=== PATIENT | male | born 1960 | race American Indian/Alaskan Native ===

== ENCOUNTER 2017-04-25 08:36 | Emergency (ER) | payer SELFPAY ==
[2017-04-25] MEDS ORDERED: BOOSTRIX IM ONE (09:41)
[2017-04-25] MEDS ORDERED: PERCOCET 5/325 PO ONE (09:41)
[2017-04-25] MEDS ORDERED: CLEOCIN PO ONE (09:41)
[2017-04-25] MEDS ORDERED: TRIPLE ANTIBIOTIC TP ONE (09:42)
[2017-04-25 10:24] VITALS: BP 148/92
--- NOTE | 2017-04-25 10:43 | Emergency Department Report ---
Entered by BESSY RUSHING, acting as scribe for BELEN SANCHEZ PA. Upper Extremity - HPI Chief Complaint: Wound/Laceration Stated Complaint: LEFT MIDDLE FINGER LACERATION Time Seen by Provider: 04/25/17 09:20 Upper Extremity: Left Middle Finger (injuryyesterday at work with bleeding, pain.) Occurred When: 1 Day Severity: severe (8/10) Symptoms: Yes Pain with Movement (left 3rd finger), Yes Deformity (left 3rd finger), Yes Laceration or Abrasion (cut to top of 3rd finger), No Limited Range of Movement, No Numbness, No Weakness, No Swelling, No Bruising/Ecchymosis Other History: 57 y/o male with a PMHx of HTN presents to the ED c/o a laceration to left 3rd finger that began at yesterday afternoon at 13:00. Patient states he cut the top of his finger at work yesterday. Rates associated pain a 8/10 in severity, which he describes as throbbing in quality. Aggravated with palpation and movement, and alleviated with immbolization. Denies numbnesss and tingling. Applied a bandage to affected finger with no relief. Patient states he unwrapped his finger with gauze and it began to bleed. Took 2 tablets of Motrin with some relief. Not UTD with tetanus. NKDA. ED Review of Systems ROS: Stated complaint: LEFT MIDDLE FINGER LACERATION Other details as noted in HPI Comment: All other systems reviewed and negative Constitutional: denies: chills, fever Eyes: denies: eye pain, eye discharge, vision change ENT: denies: ear pain, throat pain Respiratory: denies: cough, orthopnea, shortness of breath, SOB with exertion, SOB at rest, stridor, wheezing Cardiovascular: denies: chest pain, palpitations, dyspnea on exertion, orthopnea , edema, syncope, paroxysmal nocturnal dyspnea Endocrine: no symptoms reported Gastrointestinal: denies: abdominal pain, nausea, vomiting, diarrhea Genitourinary: denies: urgency, dysuria Musculoskeletal: arthralgia (left 3rd finger pain). denies: back pain, joint swelling, myalgia Skin: other (laceration to top of left 3rd finger). denies: rash, lesions Neurological: denies: headache, weakness, numbness, paresthesias Psychiatric: denies: anxiety, depression Hematological/Lymphatic: denies: easy bleeding, easy bruising ED Past Medical Hx - Past Medical History Previous Medical History?: Yes Hx Hypertension: Yes - Surgical History Past Surgical History?: Yes Additional Surgical History: left elbow, right foot, hernia, - Family History Family history: no significant - Social History Smoking Status: Current Every Day Smoker Substance Use Type: Alcohol Other Social History: - Medications Home Medications: Home Medications Medication Instructions Recorded Confirmed Last Taken Type Cephalexin [Keflex] 500 mg PO Q8HR #30 cap 04/25/17 Unknown Rx HYDROcodone/APAP 5-325 [[place] 1 each PO Q6HR PRN #12 tablet 04/25/17 Unknown Rx 5/325] Ibuprofen [Motrin] 600 mg PO Q8H PRN #15 tablet 04/25/17 Unknown Rx Upper Extremity Exam - Exam General: Vital signs noted. No distress. General: This is a well nourished, well developed, 57 year old male in no acute distress and nontoxic in appearance Cardiovascular: S1-S2, regular rate, regular rhythm. No murmurs. Head and Torso: No HEENT Abnormality (Normal exam), No Neck Tenderness (Supple, no C-spine tenderness, no tracheal deviation. Nontender to palpation. no adenopathy), No Chest/Lungs Abnormality (Clear to auscultation bilaterally. No wheezes, rhonchi, or rales), No Abdominal Tenderness (Soft, normal bowel sounds) , No Back Tenderness (Normal exam) Shoulder Exam: Yes Normal Range of Motion in Shoulder, No Shoulder Tenderness, No Clavicle Tenderness, No Shoulder Deformity, No AC Joint Tenderness Arm Exam: No Arm/Humerus Tenderness, No Arm Deformity Elbow: Yes Normal Range of Motion in Elbow, No Elbow Tenderness, No Elbow Deformity Forearm: No Forearm Tenderness, No Forearm Deformity, No Pain with Pronation, No Pain with Supination Wrist: Yes Normal ROM in Wrist, No Wrist Tenderness, No Wrist Deformity, No Snuffbox Tenderness, No Pain with Axial Thumb Compression Hand: Yes Digit Tenderness (left 3rd finger At Tuft), Yes Normal ROM in Digit(s ) (normal, but painful ROM to left 3rd finger. 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 Partial Nail avulsion), Yes Normal Distal Pulses (2+ pulses), Yes Normal Capillary Refill, Yes Normal Distal Sensation ED Course Vital Signs 04/25/17 08:48 Temperature 98.7 F Pulse Rate 72 Respiratory 16 Rate Blood Pressure 146/110 O2 Sat by Pulse 97 Oximetry - Reevaluation(s) Reevaluation #1: 04/25/17 10:24 Clindamycin 600 mg IM, Boostrix 0.5 mlx, percocet 5/325 mg po in ED. No adverse reaction - Procedure Description Procedures done: Wound Care: Lt 3rd digit wound soakes and irrigigated extensively. No foteign body seen. Neosporin ointment followed by non-adhesive dry dsg. Neurovascular intact ED Medical Decision Making - Medical Decision Making ED Course: Patient with guillory mail avulsion and partial skin avulsion injury to left 3rd finger. TTP. No bony abnormality or restriction in ROM. Wound care done. See procedure note.Clindamycin 600 mg IM, Boostrix 0.5 mlx, percocet 5/ 325 mg po in ED. No adverse reaction. 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 Diagnosis and treatment plan discussed with patient and he voiced understanding. ASSESS/PLAN 1. partial Nail Avulsion, Left 3rd digit 2 :Arthralgia left hand at 3rd finger 3: laceration with skin avulsion- unable to repair Discharge from ED with to follow up with PCP in 3 days. Given prescription for Keflex, Dunnegan and motrin with wound care instructions. Critical care attestation.: If time is entered above; I have spent that time in minutes in the direct care of this critically ill patient, excluding procedure time. ED Disposition Clinical Impression: Arthralgia of left hand Avulsion of skin of left hand Qualifiers: Encounter type: initial encounter Qualified Code(s): S61.402A - Unspecified open wound of left hand, initial encounter Open wound of left middle finger with damage to nail Qualifiers: Encounter type: initial encounter Qualified Code(s): S61.303A - Unspecified open wound of left middle finger with damage to nail, initial encounter Nail avulsion, finger Qualifiers: Encounter type: initial encounter Qualified Code(s): S61.309A - Unspecified open wound of unspecified finger with damage to nail, initial encounter Disposition: DC-01 TO HOME OR SELFCARE Is pt being admited?: No Does the pt Need Aspirin: No Condition: Stable Instructions: Acute Wound Care (ED), Skin Avulsion (ED), Arthralgia (ED) Additional Instructions: Keep affected area clean and dry Wound care as instructed take antibiotic as prescribed Clean wound daily with water and cover with gauze dressing until healed Follow up with PCP in [address] or operate heavy machinery while taking Dunnegan as this meds causes drowsiness. Prescriptions: Cephalexin [Keflex] 500 mg PO Q8HR #30 cap HYDROcodone/APAP 5-325 [Dunnegan 5/325] 1 each PO Q6HR PRN #12 tablet PRN Reason: Pain Ibuprofen [Motrin] 600 mg PO Q8H PRN #15 tablet PRN Reason: Pain Referrals: [facility] [Outside] - 2-3 Days [facility] [Outside] - 2-3 Days Forms: Accompanied Note, Work/School Release Form(ED) This documentation as recorded by the KRISTAN atkins JASMINE,accurately reflects the service I personally performed and the decisions made by ,BELEN SANCHEZ PA.
== END 2017-04-25 10:56 | disposition home or self-care (01) ==
LOC: ED 08:36
DX: S61.313A Laceration without foreign body of left middle finger with damage to nail, initial encounter (principal); I10 Essential (primary) hypertension; F17.210 Nicotine dependence, cigarettes, uncomplicated; X58.XXXA Exposure to other specified factors, initial encounter; Y93.89 Activity, other specified; Y92.89 Other specified places as the place of occurrence of the external cause; Y99.8 Other external cause status
CPT/HCPCS: 90471; 90715; 99282; A6250

== ENCOUNTER 2017-05-19 12:06 | Emergency (ER) | payer SELFPAY ==
[2017-05-19 12:19] VITALS: BP 156/115
[2017-05-19 12:43] LABS: Hematocrit 48.3 % (35.5-45.6); Hemoglobin 15.9 gm/dl (11.8-15.2); Mean Corpuscular HGB Conc 33 % (32-34); Mean Corpuscular Hemoglobin 28 pg (28-32); Mean Corpuscular Volume 85 fl (84-94); Platelet Count 233 K/mm3 (140-440); Red Blood Count 5.68 M/mm3 (3.65-5.03); Red Cell Distribution Width 14.7 % (13.2-15.2); White Blood Count 6.8 K/mm3 (4.5-11.0)
--- NOTE | 2017-05-19 13:02 | Cat Scan Report ---
CT HEAD WITHOUT CONTRAST INDICATION: Headache. COMPARISON: None similar at this institution. FINDINGS: Noncontrast head CT demonstrates symmetric ventricles and sulci without acute or recent infarct, hemorrhage, mass effect or midline shift. No abnormal extra-axial fluid collections. Posterior fossa structures and basilar cisterns appear within normal limits. Symmetric eye globes. Somewhat hypoplastic frontal sinuses with slight left frontoethmoid mucosal thickening possible. Clear remainder aerated paranasal sinuses and mastoid air cells. Intact calvarium. Normal overlying scalp soft tissues. Few radiopaque dental material incidentally noted. Cervical spondylosis. CONCLUSION: No acute intracranial CT abnormality, as described. Thank you for the opportunity to participate in this patient's care.
[2017-05-19 13:04] LABS: Alanine Aminotransferase 10 units/L (7-56); Albumin 4.1 g/dL (3.9-5); Albumin/Globulin Ratio 1.1 %; Alkaline Phosphatase 78 units/L (35-129); Anion Gap 19 mmol/L; BUN/Creatinine Ratio 11.11; Blood Urea Nitrogen 10 mg/dL (9-20); Calcium 9.2 mg/dL (8.4-10.2); Carbon Dioxide 26 mmol/L (22-30); Chloride 100.2 mmol/L (98-107); Glucose 116 mg/dL (75-100); Potassium 4.2 mmol/L (3.6-5.0); Sodium 141 mmol/L (137-145); Total Protein 7.7 g/dL (6.3-8.2)
[2017-05-19 13:05] LABS: Bilirubin,Direct < 0.2 mg/dL (0-0.2)
[2017-05-19 13:23] LABS: INR 0.89 (0.87-1.13)
[2017-05-19] MEDS ORDERED: MOTRIN PO ONE (14:49)
== END 2017-05-19 23:30 | disposition left against medical advice (07) ==
LOC: ED 12:06
DX: Z53.21 Procedure and treatment not carried out due to patient leaving prior to being seen by health care provider (principal)
CPT/HCPCS: 36415; 70450; 80048; 80074; 85027; 85610; 85730

== ENCOUNTER 2017-10-22 10:31 | Emergency (ER) | payer SELFPAY ==
[2017-10-22 11:34] LABS: Basophils % (Auto) 0.5 % (0.0-1.8); Eosinophils # (Auto) 0.4 K/mm3 (0.0-0.4); Hematocrit 46.1 % (35.5-45.6); Hemoglobin 15.8 gm/dl (11.8-15.2); Lymphocytes # (Auto) 3.2 K/mm3 (1.2-5.4); Lymphocytes % (Auto) 38.1 % (13.4-35.0); Mean Corpuscular HGB Conc 34 % (32-34); Mean Corpuscular Hemoglobin 29 pg (28-32); Mean Corpuscular Volume 84 fl (84-94); Monocytes # (Auto) 0.8 K/mm3 (0.0-0.8); Monocytes % (Auto) 9.9 % (0.0-7.3); Platelet Count 208 K/mm3 (140-440); Red Cell Distribution Width 13.8 % (13.2-15.2)
[2017-10-22 11:47] LABS: BUN/Creatinine Ratio 7; Blood Urea Nitrogen 8 mg/dL (9-20); Calcium 9.1 mg/dL (8.4-10.2); Hemolysis Index 4
--- NOTE | 2017-10-22 12:09 | XRay Report ---
Chest 2 views: History: Fever with SOB. Findings: Normal cardiomediastinal silhouette. Trachea is midline. No consolidation, pneumothorax or pleural effusion. Impression: No acute cardiopulmonary findings.
[2017-10-22] MEDS ORDERED: ZOFRAN IV ONE (12:38)
[2017-10-22] MEDS ORDERED: NACL 0.9% 1000 ML 1,000 ML IV ONE (12:38)
[2017-10-22] MEDS ORDERED: TORADOL IV ONE (12:38)
--- NOTE | 2017-10-22 12:45 | Emergency Department Report ---
Blank Doc - Documentation Documentation: She is a 57-year-old Haitian male who is presenting with cough cold congestion and diarrhea nausea for the past 2-3 weeks. Patient states the cough is nonproductive he's had subjective fevers has been fatigued and not getting out of bed much. Patient states he's had decreased appetite and is eating and drinking less. Patient is slightly tachycardic lungs were clear. Chest x-ray was within normal limits however because of the tachycardia and shortness of breath and the duration will add a d-dimer to his blood work patient be given IV fluids as he had presumed dehydration and tachycardia. Patient will be reassessed by the AP P
--- NOTE | 2017-10-22 13:38 | Emergency Department Report ---
ED Shortness of Breath HPI - General Chief Complaint: Fever Stated Complaint: FEVER Time Seen by Provider: 10/22/17 12:31 Source: patient Mode of arrival: Ambulatory Limitations: No Limitations - History of Present Illness Initial Comments: 57-year-old male presents with complaint of 3 weeks of persistent cough. Patient is a smoker. Pt denies chest pain. Patient screened by Dr. Justin becker MD Complaint: shortness of breath, cough Onset/Timin -: week(s) Improves With: bronchodilators Known History Of: asthma Context: recent URI Associated Symptoms: cough - Related Data Home Oxygen Therapy: No Previous Rx's Medication Instructions Recorded Last Taken Type Cephalexin [Keflex] 500 mg PO Q8HR #30 cap 04/25/17 Unknown Rx HYDROcodone/APAP 5-325 [[place] 1 each PO Q6HR PRN #12 tablet 04/25/17 Unknown Rx 5/325] Ibuprofen [Motrin] 600 mg PO Q8H PRN #15 tablet 04/25/17 Unknown Rx Albuterol Sulfate [Ventolin Hfa] 1 puff IH Q4H PRN #1 hfa.aer.ad 10/22/17 Unknown Rx Azithromycin [Zithromax TAB] 250 mg PO QDAY #4 tablet 10/22/17 Unknown Rx Dextromethorphan Hb/Doxylamine 10 ml PO Q6H PRN #1 liquid 10/22/17 Unknown Rx [Safetussin Pm Liquid] Ibuprofen [Motrin] 800 mg PO Q8HR PRN #30 tablet 10/22/17 Unknown Rx Ondansetron [Zofran Odt] 4 mg PO Q8H PRN #10 tab.rapdis 10/22/17 Unknown Rx Ondansetron [Zofran Odt] 4 mg PO Q8H PRN #10 tab.rapdis 10/22/17 Unknown Rx Allergies Allergy/AdvReac Type Severity Reaction Status Date / Time chocolate flavor Allergy Rash Verified 05/19/17 12:20 orange Allergy Rash Verified 05/19/17 12:20 ED Review of Systems ROS: Stated complaint: FEVER Other details as noted in HPI Constitutional: denies: chills, fever Eyes: denies: eye pain, eye discharge, vision change ENT: denies: ear pain, throat pain Respiratory: cough, wheezing. denies: shortness of breath Cardiovascular: denies: chest pain, palpitations Endocrine: no symptoms reported Gastrointestinal: denies: abdominal pain, nausea, diarrhea Genitourinary: denies: urgency, dysuria Musculoskeletal: denies: back pain, joint swelling, arthralgia Skin: denies: rash, lesions Neurological: denies: headache, weakness, paresthesias Psychiatric: denies: anxiety, depression Hematological/Lymphatic: denies: easy bleeding, easy bruising ED Past Medical Hx - Past Medical History Previous Medical History?: Yes Hx Hypertension: Yes Additional medical history: high cholesterol, pyloric stenosis - Surgical History Past Surgical History?: Yes Additional Surgical History: left elbow, right foot, hernia, - Social History Smoking Status: Current Every Day Smoker Substance Use Type: Non Opiate Pain, Prescribed, Other - Medications Home Medications: Home Medications Medication Instructions Recorded Confirmed Last Taken Type Cephalexin [Keflex] 500 mg PO Q8HR #30 cap 04/25/17 Unknown Rx HYDROcodone/APAP 5-325 [[place] 1 each PO Q6HR PRN #12 tablet 04/25/17 Unknown Rx 5/325] Ibuprofen [Motrin] 600 mg PO Q8H PRN #15 tablet 04/25/17 Unknown Rx Albuterol Sulfate [Ventolin Hfa] 1 puff IH Q4H PRN #1 hfa.aer.ad 10/22/17 Unknown Rx Azithromycin [Zithromax TAB] 250 mg PO QDAY #4 tablet 10/22/17 Unknown Rx Dextromethorphan Hb/Doxylamine 10 ml PO Q6H PRN #1 liquid 10/22/17 Unknown Rx [Safetussin Pm Liquid] Ibuprofen [Motrin] 800 mg PO Q8HR PRN #30 tablet 10/22/17 Unknown Rx Ondansetron [Zofran Odt] 4 mg PO Q8H PRN #10 tab.rapdis 10/22/17 Unknown Rx Ondansetron [Zofran Odt] 4 mg PO Q8H PRN #10 tab.rapdis 10/22/17 Unknown Rx ED Physical Exam - General Limitations: No Limitations General appearance: alert, in no apparent distress - Head Head exam: Present: atraumatic, normocephalic - Eye Eye exam: Present: normal appearance, PERRL, EOMI - ENT ENT exam: Present: mucous membranes moist - Neck Neck exam: Present: normal inspection - Respiratory Respiratory exam: Present: normal lung sounds bilaterally. Absent: respiratory distress - Cardiovascular Cardiovascular Exam: Present: regular rate, normal rhythm. Absent: systolic murmur, diastolic murmur, rubs, gallop - GI/Abdominal GI/Abdominal exam: Present: soft, normal bowel sounds - Rectal Rectal exam: Present: deferred - Extremities Exam Extremities exam: Present: normal inspection - Back Exam Back exam: Present: normal inspection - Neurological Exam Neurological exam: Present: alert, oriented X3 - Psychiatric Psychiatric exam: Present: normal affect, normal mood - Skin Skin exam: Present: warm, dry, intact, normal color. Absent: rash ED Course Vital Signs 10/22/17 10/22/17 10/22/17 10:49 12:52 15:20 Temperature 98.2 F 98.8 F Pulse Rate 116 H 88 Respiratory 22 20 18 Rate Blood Pressure 134/114 Blood Pressure 140/94 [Right] O2 Sat by Pulse 97 97 Oximetry ED Medical Decision Making - Lab Data Result diagrams: 10/22/17 11:02 10/22/17 11:02 - Medical Decision Making A/P: Acute bronchitis 1-CT scan shows no large saddle pulmonary embolism. I discussed the results with Dr. Anderson 2-empiric treatment with azithromycin 3-Motrin when necessary, albuterol inhaler when necessary, Mucinex when necessary, Zofran when necessary 4- follow-up with primary care Critical care attestation.: If time is entered above; I have spent that time in minutes in the direct care of this critically ill patient, excluding procedure time. ED Disposition Clinical Impression: Acute bronchitis Qualifiers: Bronchitis organism: unspecified organism Qualified Code(s): J20.9 - Acute bronchitis, unspecified Disposition: DC-01 TO HOME OR SELFCARE Is pt being admited?: No Does the pt Need Aspirin: No Condition: Stable Instructions: Acute Bronchitis (ED) Prescriptions: Albuterol Sulfate [Ventolin Hfa] 1 puff IH Q4H PRN #1 hfa.aer.ad PRN Reason: Wheezing Azithromycin [Zithromax TAB] 250 mg PO QDAY #4 tablet Dextromethorphan Hb/Doxylamine [Safetussin Pm Liquid] 10 ml PO Q6H PRN #1 liquid PRN Reason: Cough Ibuprofen [Motrin] 800 mg PO Q8HR PRN #30 tablet PRN Reason: Fever Ondansetron [Zofran Odt] 4 mg PO Q8H PRN #10 tab.rapdis PRN Reason: Nausea Ondansetron [Zofran Odt] 4 mg PO Q8H PRN #10 tab.rapdis PRN Reason: Nausea Referrals: [facility] [Outside] - 3-5 Days [facility] [Outside] - 3-5 Days Time of Disposition: 15:17
--- NOTE | 2017-10-22 14:25 | Cat Scan Report ---
FINAL REPORT PROCEDURE: CT ANGIO CHEST TECHNIQUE: Computerized tomographic angiography of the chest was performed after the IV injection of iodinated nonionic contrast including image processing. The image data was postprocessed using 2-dimensional multiplanar reformatted (MPR) and 3-dimensional (MIP and/or volume rendered) techniques. HISTORY: SOB, + D-dimer, ? PE COMPARISON: No prior studies are available for comparison. FINDINGS: Heart and pericardium: No pericardial effusion or thickening. Thoracic aorta: No aneurysm or dissection. Pulmonary vasculature: Limited evaluation due to suboptimal contrast enhancement. There is heterogeneous enhancement of the main pulmonary artery and right and left pulmonary arteries, with no obvious embolus noted. However more distal branches are not diagnostically evaluated. Lymph nodes: No enlarged thoracic lymph nodes. Lungs: Bilateral apical bullous changes. Pleural space: No effusion, thickening, or pneumothorax. Musculoskeletal structures: Mild multilevel thoracic spine degenerative disc changes. Upper abdominal structures: No significant abnormality. IMPRESSION: Study is very limited. No large embolus is seen in the main or right and left pulmonary arteries, however there is nondiagnostic evaluation of more distal pulmonary arterial branches
[2017-10-22 15:22] VITALS: BP 140/94
== END 2017-10-22 15:31 | disposition home or self-care (01) ==
LOC: ED 10:31
DX: J20.9 Acute bronchitis, unspecified (principal); I10 Essential (primary) hypertension; E78.00 Pure hypercholesterolemia, unspecified; F17.200 Nicotine dependence, unspecified, uncomplicated; Z91.018 Allergy to other foods
CPT/HCPCS: 36415; 71046; 71275; 80048; 84484; 85025; 85379; 93005; 93010; 96361; 96374; 96375; 99284; J1885; J2405; J7030; Q9967

== ENCOUNTER 2018-05-23 20:41 | Emergency (ER) | payer SELFPAY ==
[2018-05-23 21:39] VITALS: BP 132/86
--- NOTE | 2018-05-23 22:38 | XRay Report ---
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 FINDINGS: There is a mildly comminuted acute fracture of the 5th middle phalanx, extending to the proximal articular surface. No joint dislocation IMPRESSION: Mildly comminuted acute fracture of the 5th middle phalanx
[2018-05-24] MEDS ORDERED: KEFLEX PO ONE (01:47)
[2018-05-24] MEDS ORDERED: ULTRAM PO ONE (01:48)
--- NOTE | 2018-05-24 01:51 | Emergency Department Report ---
ED Upper Extremity Inj HPI - General Chief Complaint: Extremity Injury, Upper Stated Complaint: LEFT HAND INJURY Time Seen by Provider: 05/24/18 01:09 Source: patient Mode of arrival: Ambulatory Limitations: No Limitations - History of Present Illness Initial Comments: Patient is a 58-year-old male states his left hand was pinned between handle of mower and a tree as he rounded tree on a zeroturn mower earlier today, casing a skin tear and bleeding with pain and swelling to left hand 4&5th digits Complaint: Injury to:: left, finger Onset/Timin -: hour(s) Other Extremity Injury: Fingers: Left (4&5 ,of shaft at MIP joints ) Other Injuries: none Handedness: left Severity scale (0 -10): 4 Improves With: none Worsens With: movement of extremity Context: direct blow, crush - Related Data Previous Rx's Medication Instructions Recorded Last Taken Type HYDROcodone/APAP 5-325 [[place] 1 each PO Q6HR PRN #12 tablet 04/25/17 Unknown Rx 5/325] Ibuprofen [Motrin] 600 mg PO Q8H PRN #15 tablet 04/25/17 Unknown Rx cephALEXin [Keflex] 500 mg PO Q8HR #30 cap 04/25/17 Unknown Rx Albuterol Sulfate [Ventolin Hfa] 1 puff IH Q4H PRN #1 hfa.aer.ad 10/22/17 Unknown Rx Azithromycin [Zithromax TAB] 250 mg PO QDAY #4 tablet 10/22/17 Unknown Rx Dextromethorphan Hb/Doxylamine 10 ml PO Q6H PRN #1 liquid 10/22/17 Unknown Rx [Safetussin Pm Liquid] Ibuprofen [Motrin] 800 mg PO Q8HR PRN #30 tablet 10/22/17 Unknown Rx Ondansetron [Zofran Odt] 4 mg PO Q8H PRN #10 tab.rapdis 10/22/17 Unknown Rx Ondansetron [Zofran Odt] 4 mg PO Q8H PRN #10 tab.rapdis 10/22/17 Unknown Rx Cephalexin [Keflex] 500 mg PO TID #30 capsule 05/24/18 Unknown Rx traMADol [Ultram] 50 mg PO Q6HR PRN #12 tablet 05/24/18 Unknown Rx Allergies Allergy/AdvReac Type Severity Reaction Status Date / Time chocolate flavor Allergy Rash Verified 05/19/17 12:20 orange Allergy Rash Verified 05/19/17 12:20 ED Review of Systems ROS: Stated complaint: LEFT HAND INJURY Other details as noted in HPI Constitutional: denies: chills, fever Eyes: denies: eye pain, eye discharge, vision change ENT: denies: ear pain, throat pain Respiratory: denies: cough, shortness of breath, wheezing Cardiovascular: denies: chest pain, palpitations Endocrine: no symptoms reported Gastrointestinal: denies: abdominal pain, nausea, diarrhea Genitourinary: denies: urgency, dysuria Musculoskeletal: joint swelling. denies: back pain, arthralgia Skin: denies: rash, lesions Neurological: denies: headache, weakness, paresthesias Psychiatric: denies: anxiety, depression Hematological/Lymphatic: denies: easy bleeding, easy bruising ED Past Medical Hx - Past Medical History Previous Medical History?: Yes Hx Hypertension: Yes Additional medical history: high cholesterol, pyloric stenosis - Surgical History Past Surgical History?: Yes Additional Surgical History: left elbow, right foot, hernia - Social History Smoking Status: Current Every Day Smoker Substance Use Type: Alcohol - Medications Home Medications: Home Medications Medication Instructions Recorded Confirmed Last Taken Type HYDROcodone/APAP 5-325 [[place] 1 each PO Q6HR PRN #12 tablet 04/25/17 Unknown Rx 5/325] Ibuprofen [Motrin] 600 mg PO Q8H PRN #15 tablet 04/25/17 Unknown Rx cephALEXin [Keflex] 500 mg PO Q8HR #30 cap 04/25/17 Unknown Rx Albuterol Sulfate [Ventolin Hfa] 1 puff IH Q4H PRN #1 hfa.aer.ad 10/22/17 Unknown Rx Azithromycin [Zithromax TAB] 250 mg PO QDAY #4 tablet 10/22/17 Unknown Rx Dextromethorphan Hb/Doxylamine 10 ml PO Q6H PRN #1 liquid 10/22/17 Unknown Rx [Safetussin Pm Liquid] Ibuprofen [Motrin] 800 mg PO Q8HR PRN #30 tablet 10/22/17 Unknown Rx Ondansetron [Zofran Odt] 4 mg PO Q8H PRN #10 tab.rapdis 10/22/17 Unknown Rx Ondansetron [Zofran Odt] 4 mg PO Q8H PRN #10 tab.rapdis 10/22/17 Unknown Rx Cephalexin [Keflex] 500 mg PO TID #30 capsule 05/24/18 Unknown Rx traMADol [Ultram] 50 mg PO Q6HR PRN #12 tablet 05/24/18 Unknown Rx ED Physical Exam - General Limitations: No Limitations General appearance: alert, in no apparent distress - Head Head exam: Present: atraumatic, normocephalic - Eye Eye exam: Present: normal appearance - ENT ENT exam: Present: normal exam - Neck Neck exam: Present: normal inspection - Respiratory Respiratory exam: Present: normal lung sounds bilaterally. Absent: respiratory distress - Cardiovascular Cardiovascular Exam: Present: regular rate, normal rhythm. Absent: systolic murmur, diastolic murmur, rubs, gallop - GI/Abdominal GI/Abdominal exam: Present: soft, normal bowel sounds - Rectal Rectal exam: Present: deferred - Extremities Exam Extremities exam: Present: tenderness, normal capillary refill (physical), joint swelling - Expanded Upper Extremity Exam Left Hand Wrist exam: Present: tenderness, swelling, abrasion, erythema, other (pain skin tear 4&5th digits mid shaft, no foreignbody no no bleeding ). Absent: ecchymosis, deformity, crepidus, dislocation (skin Is Involved Is Not Deep into His), amputation ( IN Vaseline Dressing on), nail avulsion, subungual hematoma Neuro motor exam: Present: wrist extension intact, thumb opposition intact, thumb IP flexion intact, thumb adduction intact, fingers 2-5 abduction intact ( think he broke) Neurosensory exam: Present: 2-point discrimination, radial nerve intact, ulnar nerve intact, median nerve intact Vascular: Present: vascular compromise, normal capillary refill, radial pulse, brachial pulse, ulnar pulse. Absent: pulse deficit radial art, pulse deficit ulnar art, pulse deficit brachial art - Back Exam Back exam: Present: normal inspection (is), full ROM. Absent: tenderness, CVA tenderness (R), CVA tenderness (L) (OSOut of his), muscle spasm, paraspinal tenderness (Z that S), vertebral tenderness, rash noted - Neurological Exam Neurological exam: Present: alert, oriented X3 - Psychiatric Psychiatric exam: Present: depressed - Skin Skin exam: Present: warm, dry, intact, normal color, abrasion (Left 4&% digit as above ). Absent: rash ED Course Vital Signs 05/23/18 21:34 Temperature 99 F Pulse Rate 76 Respiratory 18 Rate Blood Pressure 132/86 O2 Sat by Pulse 97 Oximetry ED Medical Decision Making - Radiology Data Radiology results: report reviewed, image reviewed Left hand fifth digit mildly comminuted acute fracture of the fifth middle phalanx closed - Medical Decision Making Wound care to fourth and fifth digits irrigated with sterile saline Vaseline gauze and Stephanie plan follow-up with orthopedist in 1-2 days for a viable fifth metacapal tarsal break patient construction and instructions on antibiotic and when necessary pain medication both patient and from last agreement and understanding of same patient was DC'd to home in stable condition at this time sterile dressings are intact all bleeding is controlled patient tolerated care with minimal distress. Distal pulses intact range of motion is intact including flexion and extension to direct opposition DIRECTOR OF RESEARCH less than 3 seconds Critical care attestation.: If time is entered above; I have spent that time in minutes in the direct care of this critically ill patient, excluding procedure time. ED Disposition Clinical Impression: Finger fracture, left Qualifiers: Encounter type: initial encounter Finger: little finger Fracture type: closed Phalanx: middle Fracture alignment: nondisplaced Qualified Code(s): S62.657A - Nondisplaced fracture of medial phalanx of left little finger, initial encounter for closed fracture Skin tear of hand without complication Qualifiers: Encounter type: initial encounter Laterality: left Qualified Code(s): S61.412A - Laceration without foreign body of left hand, initial encounter Disposition: DC-01 TO HOME OR SELFCARE Is pt being admited?: No Does the pt Need Aspirin: No Condition: Good Instructions: Acute Wound Care (ED) Prescriptions: Cephalexin [Keflex] 500 mg PO TID #30 capsule traMADol [Ultram] 50 mg PO Q6HR PRN #12 tablet PRN Reason: Pain Referrals: VASILIY PALMER MD [Staff Physician] - 3-5 Days Forms: Work/School Release Form(ED) Time of Disposition: 02:05
[2018-05-24] MEDS ORDERED: KEFLEX ONE (01:59)
== END 2018-05-24 02:18 | disposition home or self-care (01) ==
LOC: ED 20:41
DX: S62.657A Nondisplaced fracture of middle phalanx of left little finger, initial encounter for closed fracture (principal); S61.412A Laceration without foreign body of left hand, initial encounter; I10 Essential (primary) hypertension; E78.00 Pure hypercholesterolemia, unspecified; F17.200 Nicotine dependence, unspecified, uncomplicated; Z91.018 Allergy to other foods; W23.1XXA Caught, crushed, jammed, or pinched between stationary objects, initial encounter; Y93.89 Activity, other specified; Y92.89 Other specified places as the place of occurrence of the external cause; Y99.8 Other external cause status
CPT/HCPCS: 99283

== ENCOUNTER 2018-09-15 19:27 | Inpatient (IN) | payer OTHER ==
[2018-09-15] MEDS ORDERED: NACL 0.9% 1000 ML 2,000 ML ONE (19:56)
[2018-09-15] MEDS ORDERED: NACL 0.9% 1000 ML 1,000 ML IV ONE (20:31)
--- NOTE | 2018-09-15 20:39 | Emergency Department Report ---
ED Syncope HPI - General Chief Complaint: Syncope Stated Complaint: SYNCOPE Time Seen by Provider: 09/15/18 20:10 Source: patient, family Exam Limitations: no limitations - History of Present Illness Initial Comments: Patient is a 58-year-old male that presents emergency room for a syncopal episode. Patient states he was at home alone sitting on his couch and went unconscious. Patient states he believes he was unconscious only for a few seconds. Patient states that he donated plasma today and his blood pressure has been low all day prior to donating and continued to be low afterwards. Patient also was recently started blood pressure medication. Patient is also complai jocelyn of shortness of breath. Patient denies chest pain. Patient states shortness of breath better with rest and worse with exertion. Patient's initial blood pressure 65/40. Patient brought in by EMS. Report received from EMS. Patient denies fever and chills. States that he is been taking his medications correctly. Timing/Prior Episodes: no prior history, single episode today Precipitating Factors: Positive: blurred vision, lightheadedness. Negative: confusion, diaphoresis, injury, nausea, pain, recent head trauma, rapid heart beat Context: sitting Loss of Consciousness: brief (seconds) Current Symptoms: dizziness, lightheadedness, weakness. denies: blurred vision, chest pain, diaphoresis, headache, injury, loss of bladder control, loss of bowel control, motionless, nausea, pale, shallow/rapid breathing, weak/absent pulse - Related Data Allergies/Adverse Reactions: Allergies chocolate flavor Allergy (Verified 05/19/17 12:20) Rash orange Allergy (Verified 05/19/17 12:20) Rash Home Medications: Ambulatory Orders Lisinopril [Zestril TAB] 10 mg PO QDAY 09/16/18 Sertraline [Zoloft] 25 mg PO QDAY 09/16/18 amLODIPine [Norvasc] 10 mg PO DAILY 09/16/18 ED Review of Systems ROS: Stated complaint: SYNCOPE Other details as noted in HPI Constitutional: denies: chills, fever Eyes: denies: eye pain, eye discharge, vision change ENT: denies: ear pain, throat pain Respiratory: shortness of breath. denies: cough, wheezing Cardiovascular: denies: chest pain, palpitations Endocrine: no symptoms reported Gastrointestinal: denies: abdominal pain, nausea, diarrhea Genitourinary: denies: urgency, dysuria Musculoskeletal: denies: back pain, joint swelling, arthralgia Skin: denies: rash, lesions Neurological: denies: headache, weakness, paresthesias Psychiatric: denies: anxiety, depression Hematological/Lymphatic: denies: easy bleeding, easy bruising ED Past Medical Hx - Past Medical History Previous Medical History?: Yes Hx Hypertension: Yes Hx Psychiatric Treatment: Yes (Depression) Additional medical history: high cholesterol, pyloric stenosis - Surgical History Past Surgical History?: Yes Additional Surgical History: left elbow, right foot, hernia - Family History Family history: no significant - Social History Smoking Status: Unknown if ever smoked Substance Use Type: Marijuana - Medications Home Medications: Home Medications Medication Instructions Recorded Confirmed Last Taken Type Lisinopril [Zestril TAB] 10 mg PO QDAY 09/16/18 09/16/18 09/15/18 08:00 History Sertraline [Zoloft] 25 mg PO QDAY 09/16/18 09/16/18 09/15/18 08:00 History amLODIPine [Norvasc] 10 mg PO DAILY 09/16/18 09/16/18 09/15/18 08:00 History ED Physical Exam - General Limitations: No Limitations General appearance: alert, in no apparent distress - Head Head exam: Present: atraumatic, normocephalic - Eye Eye exam: Present: normal appearance - ENT ENT exam: Present: mucous membranes moist - Neck Neck exam: Present: normal inspection - Respiratory Respiratory exam: Present: normal lung sounds bilaterally. Absent: respiratory distress - Cardiovascular Cardiovascular Exam: Present: regular rate, normal rhythm. Absent: systolic mu rmur, diastolic murmur, rubs, gallop - GI/Abdominal GI/Abdominal exam: Present: soft, normal bowel sounds - Rectal Rectal exam: Present: deferred - Extremities Exam Extremities exam: Present: normal inspection - Back Exam Back exam: Present: normal inspection - Neurological Exam Neurological exam: Present: alert, oriented X3 - Psychiatric Psychiatric exam: Present: normal affect, normal mood - Skin Skin exam: Present: warm, dry, intact, normal color. Absent: rash ED Course Vital Signs 09/15/18 09/15/18 09/15/18 21:15 22:00 22:30 Pulse Rate 78 78 80 Pulse Rate [ Apical] Respiratory 16 18 16 Rate Blood Pressure 100/70 98/61 98/61 [Left] O2 Sat by Pulse 98 98 98 Oximetry 09/15/18 09/16/18 22:44 00:45 Pulse Rate 82 Pulse Rate [ 80 Apical] Respiratory 20 18 Rate Blood Pressure 105/69 [Left] O2 Sat by Pulse 98 98 Oximetry - Reevaluation(s) Reevaluation #1: Discussed all results with family and patient. Discussed plan of care and admission with family and patient. Both agreed to admission. Patient's blood pressure improved with Trendelenburg and minimal fluids. Patient to be admitted to the hospitalist service for further evaluation and treatment. 09/15/18 23:06 - Consultations Consultation #1: Hospitals consultation for admission. Hospitalist to admit the patient and assumed care of patient. 09/15/18 23:06 ED Medical Decision Making - Lab Data Result diagrams: 09/15/18 21:57 09/15/18 20:41 - EKG Data -: EKG Interpreted by Nd EKG shows normal: sinus rhythm, axis, intervals, QRS complexes, ST-T waves Rate: normal - Radiology Data Radiology results: image reviewed Normal limits chest x-ray - Medical Decision Making 58-year-old hypotensive. Patient is slow done essentially unremarkable except for hyponatremia and elevated white count. Elevated white count likely secondary to syncopal episode. Elevate creatinine secondary to dehydration. Chest x-ray negative. The patient was admitted to the hospitalist service for evaluation 2. - Differential Diagnosis sob. hypotension. Critical Care Time: Yes Critical care attestation.: If time is entered above; I have spent that time in minutes in the direct care of this critically ill patient, excluding procedure time. Critical Care Time: 35 minutes ED Disposition Clinical Impression: Shortness of breath, Acute renal insufficiency Syncopal episodes Qualifiers: Syncope type: unspecified Qualified Code(s): R55 - Syncope and collapse Hypotension Qualifiers: Hypotension type: unspecified hypotension type Qualified Code(s): I95.9 - Hypotension, unspecified Disposition: OP ADMIT IP TO THIS HOSP Is pt being admited?: Yes Does the pt Need Aspirin: No Condition: Critical Time of Disposition: 23:06
[2018-09-15 21:34] LABS: Creatine Kinase MB 1.6 ng/mL (0.0-4.0)
[2018-09-15 21:36] LABS: Alanine Aminotransferase 15 units/L (7-56); Albumin 3.8 g/dL (3.9-5)
[2018-09-15 21:44] LABS: Bilirubin,Direct < 0.2 mg/dL (0-0.2)
[2018-09-15 21:51] LABS: BUN/Creatinine Ratio 7; Blood Urea Nitrogen 12 mg/dL (9-20); Calcium 8.4 mg/dL (8.4-10.2); Hemolysis Index 7
[2018-09-15 22:04] LABS: Basophils % (Auto) 0.1 % (0.0-1.8); Eosinophils # (Auto) 0.1 K/mm3 (0.0-0.4); Eosinophils % (Auto) 0.5 % (0.0-4.3); Hemoglobin 15.9 gm/dl (11.8-15.2); Lymphocytes # (Auto) 1.2 K/mm3 (1.2-5.4); Mean Corpuscular HGB Conc 34 % (32-34); Mean Corpuscular Volume 87 fl (84-94); Monocytes # (Auto) 0.6 K/mm3 (0.0-0.8); Monocytes % (Auto) 5.3 % (0.0-7.3); Platelet Count 182 K/mm3 (140-440); Red Blood Count 5.38 M/mm3 (3.65-5.03); Red Cell Distribution Width 13.8 % (13.2-15.2)
[2018-09-15] MEDS ORDERED: TYLENOL PO PRN (23:18)
[2018-09-15] MEDS ORDERED: SODIUM CHLORIDE FLUSH SYRINGE 10 ML IV PRN (23:18)
[2018-09-15] MEDS ORDERED: ZOFRAN IV PRN (23:18)
--- NOTE | 2018-09-15 23:18 | History and Physical Report ---
History of Present Illness Date of examination: 09/15/18 History of present illness: 58-year-old man with a history of hypertension, hyperlipidemia, depression, pyloric stenosis comes emergency room because he had a syncopal episode today. Patient states he went to donate plasma, 880 ml was extracted. His blood pressu re prior to the plasma draw was 100/68. He stated he took his antihypertensive, had not eaten for the most of the day. Later on when he got home he ate a sandwich, he was sitting on the couch playing with his Crohn's child, he became nauseous and vomited, complaining of dizziness and passed out, for a minute or 2. He's been hypertensive in the emergency room, responding to IV fluid. He was started on 2 antihypertensive in the last 3 months Review of systems Constitutional: no weight loss, chills, fever Ears, eyes, nose, mouth and throat: no nasal congestion, no nasal discharge, no sinus pressure, no vision change, no red eye. Neck: No neck pain or rigidity. Cardiovascular: no palpitations, chest pain Respiratory: no cough, shortness of breath Gastrointestinal: no hematochezia, abdominal pain Genitourinary : no frequency , no hematuria Musculoskeletal: no joint swelling or muscle ache Integumentary: no rash, no pruritis Neurological: no parathesias, no focal weakness Endocrine: no cold or heat intolerance, no polyuria or polydipsia Hematologic/Lymphatic: no easy bruising, no easy bleeding, no gland swelling Allergic/Immunologic: no urticaria, no angioedema. PAST MEDICAL HISTORY: hypertension, hyperlipidemia, depression, pyloric stenosis PAST SURGICAL HISTORY: Left elbow, right foot, hernia repair SOCIAL HISTORY: Denies alcohol, marijuana use, smoke a pack a day FAMILY HISTORY: Hypertension Medications and Allergies Allergies Allergy/AdvReac Type Severity Reaction Status Date / Time chocolate flavor Allergy Rash Verified 05/19/17 12:20 orange Allergy Rash Verified 05/19/17 12:20 Home Medications Medication Instructions Recorded Confirmed Last Taken Type HYDROcodone/APAP 5-325 [[place] 1 each PO Q6HR PRN #12 tablet 04/25/17 Unknown Rx 5/325] Ibuprofen [Motrin] 600 mg PO Q8H PRN #15 tablet 04/25/17 Unknown Rx cephALEXin [Keflex] 500 mg PO Q8HR #30 cap 04/25/17 Unknown Rx Albuterol Sulfate [Ventolin Hfa] 1 puff IH Q4H PRN #1 hfa.aer.ad 10/22/17 Unknown Rx Azithromycin [Zithromax TAB] 250 mg PO QDAY #4 tablet 10/22/17 Unknown Rx Dextromethorphan Hb/Doxylamine 10 ml PO Q6H PRN #1 liquid 10/22/17 Unknown Rx [Safetussin Pm Liquid] Ibuprofen [Motrin] 800 mg PO Q8HR PRN #30 tablet 10/22/17 Unknown Rx Ondansetron [Zofran Odt] 4 mg PO Q8H PRN #10 tab.rapdis 10/22/17 Unknown Rx Ondansetron [Zofran Odt] 4 mg PO Q8H PRN #10 tab.rapdis 10/22/17 Unknown Rx Cephalexin [Keflex] 500 mg PO TID #30 capsule 05/24/18 Unknown Rx traMADol [Ultram] 50 mg PO Q6HR PRN #12 tablet 05/24/18 Unknown Rx Exam - Physical Exam Narrative exam: General Apperance: The patient lying in bed, breathing comfortable HEENT: Normocephalic, atraumatic. Pupils equally round and reactive to light, EOMI, no sclericterus or JVD or thyromegaly or nodule. , no carotid bruit, mucous membranes moist, no exudate or erythema Heart: S1-S2, regular is rhythm Lungs: Clear to auscultation bilaterally, breathing comfortable Abdomen: Positive bowel sounds, soft, nontender, nondistended, no organomegaly Extremities: No edema cyanosis clubbing Skin: no rash, nodule, warm and dry Neuro: cranial nerves 2-12 intact, speech is fluent, motor/sensory intact - Constitutional Vitals: Temp Pulse Resp BP Pulse Ox 82 20 105/69 98 09/15/18 22:44 09/15/18 22:44 09/15/18 22:44 09/15/18 22:44 Results - Labs CBC & Chem 7: 09/15/18 21:57 09/15/18 20:41 Labs: Abnormal lab results 09/15/18 09/15/18 09/15/18 Range/Units 20:41 20:41 21:57 WBC 11.4 H (4.5-11.0) K/mm3 RBC 5.38 H (3.65-5.03) M/mm3 Hgb 15.9 H (11.8-15.2) gm/dl Hct 47.0 H (35.5-45.6) % Lymph % (Auto) 11.0 L (13.4-35.0) % Seg Neutrophils % 83.1 H (40.0-70.0) % Seg Neutrophils # 9.5 H (1.8-7.7) K/mm3 Creatinine 1.7 H (0.8-1.5) mg/dL Glucose 166 H (75-100) mg/dL Total Protein 5.9 L (6.3-8.2) g/dL Albumin 3.8 L (3.9-5) g/dL - Imaging and Cardiology EKG: image reviewed Chest x-ray: report reviewed Assessment and Plan Assessment Hypotension secondary to antihypertensive, dehydration Syncope secondary to the above Acute renal insufficiency to JS inhibitor Depression Hyperlipidemia Plan Admit to medicine Start IV fluid, check cardiac enzymes Hold JS inhibitor, Norvasc, monitor kidney function DVT prophylaxis
--- NOTE | 2018-09-15 23:40 | XRay Report ---
FINAL REPORT PROCEDURE: Chest. TECHNIQUE: Portable AP view. HISTORY: Shortness of breath. COMPARISON: No prior studies are available for comparison. FINDINGS: The heart and mediastinum appear normal. The lungs are grossly clear and well expanded. There are no pleural effusions. The soft tissues and regional skeleton are unremarkable. IMPRESSION: Negative portable chest.
[2018-09-15] MEDS ORDERED: NACL 0.9% 1000 ML 1,000 ML IV SCH (23:45)
[2018-09-16 00:43] LABS: Creatine Kinase MB 1.6 ng/mL (0.0-4.0)
[2018-09-16 05:02] LABS: Bilirubin,Urine NEG (Negative); Blood,Urine NEG (Negative); Color,Urine Yellow (Yellow); Mucus,Urine 3+ /HPF; Protein,Urine <15 mg/dL mg/dL (Negative)
[2018-09-16 05:07] LABS: Amphetamine Screen,Urine PRESUMPTIVE NEGATIVE; Benzodiazepines Screen,Urine PRESUMPTIVE NEGATIVE; Cocaine Screen,Urine PRESUMPTIVE NEGATIVE; Methadone Screen,Urine PRESUMPTIVE NEGATIVE; Opiate Screen,Urine PRESUMPTIVE NEGATIVE
[2018-09-16 05:20] LABS: Cannabinoid Screen,Urine PRESUMPTIVE POSITIVE
[2018-09-16 06:12] LABS: Basophils % (Auto) 0.1 % (0.0-1.8); Eosinophils # (Auto) 0.2 K/mm3 (0.0-0.4); Eosinophils % (Auto) 1.4 % (0.0-4.3); Hematocrit 41.9 % (35.5-45.6); Hemoglobin 13.9 gm/dl (11.8-15.2); Lymphocytes # (Auto) 2.4 K/mm3 (1.2-5.4); Lymphocytes % (Auto) 22.7 % (13.4-35.0); Mean Corpuscular HGB Conc 33 % (32-34); Mean Corpuscular Volume 89 fl (84-94); Monocytes # (Auto) 0.8 K/mm3 (0.0-0.8); Monocytes % (Auto) 7.1 % (0.0-7.3); Platelet Count 180 K/mm3 (140-440); Red Blood Count 4.72 M/mm3 (3.65-5.03); Red Cell Distribution Width 13.8 % (13.2-15.2)
[2018-09-16 06:32] LABS: Creatine Kinase MB 1.8 ng/mL (0.0-4.0)
[2018-09-16 06:34] LABS: BUN/Creatinine Ratio 16; Blood Urea Nitrogen 16 mg/dL (9-20); Calcium 9.9 mg/dL (8.4-10.2); Hemolysis Index 15
[2018-09-16] MEDS ORDERED: ZOLOFT PO SCH (10:00)
[2018-09-16] MEDS ORDERED: LOVENOX SUB-Q SCH (10:00)
[2018-09-16] MEDS ORDERED: SODIUM CHLORIDE FLUSH SYRINGE 10 ML IV SCH (10:00)
--- NOTE | 2018-09-16 12:33 | Discharge Summary ---
Providers - Providers Date of Admission: 09/15/18 23:18 Date of discharge: 09/16/18 Attending physician: RHINA ANDERSON Primary care physician: [facility] [employer] [facility]NAGER Hospitalization Reason for admission: syncope Condition: Critical Hospital course: 58-year-old man with a history of hypertension, hyperlipidemia, depression, pyloric stenosis comes emergency room because he had a syncopal episode yesterday. Patient states he went to donate plasma, 880 ml was extracted. His blood pressure prior to the plasma draw was 100/68. He stated he took his antihypertensive, had not eaten for the most of the day. Later on when he got home he ate a sandwich, he was sitting on the couch playing with his child, he became nauseous and vomited, complaining of dizziness and passed out. He was hypotensive on admission but responded to IV fluid. He was started on 2 antihypertensive in the last 3 months. The patient was admitted with diagnosis of acute renal failure secondary to acute kidney injury from vasomotor nephropathy/dehydration. Patient's creatinine was found to be 1.7 and return to normal range 1.0 after IV fluid hydration. Patient had no further symptoms of presyncope or dizziness. I instructed the patient to check his blood pressure over the next few days before restarting his home medications. Also, counseled the patient on importance of hydration. Dedicated discharge time 32 minutes. Disposition: DC-01 TO HOME OR SELFCARE Time spent for discharge: 32 - Discharge Diagnoses (1) Acute renal insufficiency Status: Acute (2) Hypotension Status: Acute Qualifiers: Hypotension type: unspecified hypotension type Qualified Code(s): I95.9 - Hypotension, unspecified (3) Syncopal episodes Status: Acute Qualifiers: Syncope type: unspecified Qualified Code(s): R55 - Syncope and collapse Core Measure Documentation - Palliative Care Palliative Care/ Comfort Measures: Not Applicable - Core Measures Any of the following diagnoses?: none Exam - Constitutional Vitals: Temp Pulse Resp BP Pulse Ox 98.5 F 80 16 121/75 95 09/16/18 08:48 09/16/18 08:48 09/16/18 08:48 09/16/18 08:48 09/16/18 08:48 General appearance: Present: no acute distress, well-nourished - EENT Eyes: Present: PERRL ENT: hearing intact, clear oral mucosa - Neck Neck: Present: supple, normal ROM - Respiratory Respiratory effort: normal Respiratory: bilateral: CTA - Cardiovascular Heart Sounds: Present: S1 & S2. Absent: rub, click - Extremities Extremities: pulses symmetrical, No edema Peripheral Pulses: within normal limits - Abdominal General gastrointestinal: Present: soft, non-tender, non-distended, normal bowel sounds Male genitourinary: Present: normal - Integumentary Integumentary: Present: clear, warm, dry - Musculoskeletal Musculoskeletal: gait normal, strength equal bilaterally - Psychiatric Psychiatric: appropriate mood/affect, intact judgment & insight - Neurologic Neurologic: CNII-XII intact, moves all extremities Plan Activity: advance as tolerated Weight Bearing Status: Full Weight Bearing Diet: regular Follow up with: PRIMARY CARE, [Primary Care Provider] - 3-5 Days
[2018-09-16 17:45] VITALS: BP 126/87
== END 2018-09-16 19:14 | disposition home or self-care (01) | DRG 314 ==
LOC: ED 19:27 → 4A 23:18
PROVIDERS: ADMIT Internal Medicine; ATTEND Hospitalist
DX: I95.9 Hypotension, unspecified (principal); N17.0 Acute kidney failure with tubular necrosis; E78.00 Pure hypercholesterolemia, unspecified; F32.9 Major depressive disorder, single episode, unspecified; I10 Essential (primary) hypertension; E78.5 Hyperlipidemia, unspecified; E86.0 Dehydration; F12.90 Cannabis use, unspecified, uncomplicated; F17.210 Nicotine dependence, cigarettes, uncomplicated; Z82.49 Family history of ischemic heart disease and other diseases of the circulatory system; Z91.018 Allergy to other foods; Z91.09 Other allergy status, other than to drugs and biological substances; Z79.899 Other long term (current) drug therapy
CPT/HCPCS: 36415; 71045; 80048; 80076; 80307; 81001; 82140; 82550; 82553; 83880; 84484; 85025; 85379; 93005; 93010; G0378; J1650; J7030